=== PATIENT | female | born 1945 | race Native Hawaiian/Other Pacific Islander ===

== ENCOUNTER 2017-04-21 10:02 | Emergency (ER) | payer MEDICARE ==
[2017-04-21 10:19] VITALS: RESP 16; TEMP 97.9
--- NOTE | 2017-04-21 10:37 | C.PDOC ---
History Of Present Illness 71 yr old female with PMHx of HTN (did not take medication this morning), presents to the ER with complaints of persistent right shoulder pain for the past 4 days. Patient reports onset after lifting a heavy bag. Reports pain to the side of the right shoulder. Patient states the pain is worse when she lifts the arm and improves with Aleve and topical bio-freeze. Patient reports the pain is better today then before. Denies history of chronic shoulder injury, direct trauma, chest pain, back pain, neck pain, weakness or numbness. Time Seen by Provider: 04/21/17 10:27 Chief Complaint (Nursing): Upper Extremity Problem/Injury History Per: Patient History/Exam Limitations: no limitations Onset/Duration Of Symptoms: Days (4) Current Symptoms Are (Timing): Still Present Past Medical History Reviewed: Historical Data, Nursing Documentation, Vital Signs Vital Signs: Last Vital Signs Temp 97.9 F 04/21/17 10:08 Pulse 110 H 04/21/17 10:08 Resp 16 04/21/17 10:08 BP 180/91 H 04/21/17 10:08 Pulse Ox 99 04/21/17 10:38 - Medical History PMH: HTN, Hypercholesterolemia Family History: States: No Known Family Hx - Social History Hx Alcohol Use: No Hx Substance Use: No Review Of Systems Except As Marked, All Systems Reviewed And Found Negative. Cardiovascular: Negative for: Chest Pain Musculoskeletal: Positive for: Shoulder Pain (Right shoulder ). Negative for: Neck Pain, Back Pain Neurological: Negative for: Weakness, Numbness Physical Exam - Physical Exam Appears: Non-toxic, No Acute Distress Skin: Warm, Dry, No Rash Head: Atraumatic, Normacephalic Chest: Symmetrical, No Tenderness Cardiovascular: Rhythm Regular, No Murmur Respiratory: Normal Breath Sounds, No Rales, No Rhonchi, No Stridor, No Wheezing Extremity: Tenderness (Right deltoid.), Capillary Refill (<2), Swelling (Right deltoid ), Other (Right Shoulder - Less then 90degree flexion. Less then 90degree abduction. Limited full external rotation. ) Pulses: Left Radial: Normal, Right Radial: Normal Neurological/Psych: Oriented x3, Normal Speech, Normal Sensation Gait: Steady ED Course And Treatment O2 Sat by Pulse Oximetry: 99 (RA ) Pulse Ox Interpretation: Normal Medical Decision Making Medical Decision Making: PLAN: * Tylenol PO * Lidoderm TD Disposition Counseled Patient/Family Regarding: Diagnosis, Need For Followup, Rx Given - Disposition Referrals: YOUR,PMD [Other] Disposition: HOME/ ROUTINE Disposition Time: 10:36 Condition: IMPROVED Additional Instructions: REMOVE PATCH 12 HOURS AFTER INITIAL APPLICATION. CONTINUE ALEVE DIRECTED. MAY COMBINE WITH TYLENOL DIRECTED. Prescriptions: Lidocaine 5% [Lidoderm] 1 ea TD PRN PRN #10 patch PRN Reason: Pain, Moderate (4-7) Instructions: Shoulder Sprain (ED) Forms: [facility] (Hungarian) - Clinical Impression Clinical Impression: Shoulder strain - Scribe Statement The provider has reviewed the documentation as recorded by the Almaibe Char Anderson Provider Attestation: All medical record entries made by the Scribe were at my direction and personally dictated by me. I have reviewed the chart and agree that the record accurately reflects my personal performance of the history, physical exam, medical decision making, and the department course for this patient. I have also personally directed, reviewed, and agree with the discharge instructions and disposition.
[2017-04-21] MEDS ORDERED: Lidocaine 5% Patch TD STA (10:38)
[2017-04-21] MEDS ORDERED: Lidocaine 5% Patch TD ONE (10:44)
[2017-04-21 10:53] VITALS: BP 165/79; PULSE 78; O2SAT 98
== END 2017-04-21 10:47 | disposition home or self-care (01) ==
LOC: C.ER 10:02
DX: S46.911A Strain of unspecified muscle, fascia and tendon at shoulder and upper arm level, right arm, initial encounter (principal); X50.0XXA Overexertion from strenuous movement or load, initial encounter; I10 Essential (primary) hypertension

== ENCOUNTER 2017-05-26 17:13 | Emergency (ER) | payer MEDICARE ==
--- NOTE | 2017-05-26 17:43 | C.PDOC ---
History Of Present Illness <Arias Christiansen Jr. - Last Filed: 05/26/17 18:34> <Magdalena Pedersen - Last Filed: 05/26/17 22:13> 05/26/2017 17:40 A 72 year old female, whose past medical history includes hypertension, was brought in by EMS and presents to the emergency department complaining of head injury prior to arrival. Patient reports she slipped on stairs and hit her head on corner of door. This caused laceration to the top of her head. Patient denies of any loss of consciousness, syncope, dizziness, vision changes, focal deficits, or any other complaints. PMD: Dr. Jessie Chiang (Arias Christiansen Jr.) In addition to above history, pt denies LOC, syncope, severe headache, visual changes, focal deficits, CP, SOB, palpitation, diaphoresis, abd. pain, N/V, denies back pain,denies deformity, weakness, sensory or vascular deficits to B/ L UEs and LEs. At the time of evaluation, family at bedside and confirm mechanical nature of fall. Pt appears comfortable, not in any apparent distress. (Magdalena Pedersen) - HPI History Per: Patient History/Exam Limitations: no limitations Onset/Duration Of Symptoms: Other (prior to arrival) <Arias Christiansen Jr. - Last Filed: 05/26/17 18:34> <Magdalena Pedersen - Last Filed: 05/26/17 22:13> - HPI Time Seen by Provider: 05/26/17 17:16 Chief Complaint (Nursing): Trauma Past Medical History Reviewed: Historical Data, Nursing Documentation, Vital Signs - Medical History PMH: HTN, Hypercholesterolemia - Social History Hx Alcohol Use: No Hx Substance Use: No <Arias Christiansen Jr. - Last Filed: 05/26/17 18:34> Family History: States: No Known Family Hx - Immunization History Hx Tetanus Toxoid Vaccination: No <Magdalena Pedersen - Last Filed: 05/26/17 22:13> Vital Signs: Last Vital Signs Temp 97.6 F 05/26/17 19:37 Pulse 77 05/26/17 19:37 Resp 16 05/26/17 19:37 BP 144/71 05/26/17 19:37 Pulse Ox 97 05/26/17 19:37 Review Of Systems Except As Marked, All Systems Reviewed And Found Negative. Eyes: Negative for: Vision Change Cardiovascular: Negative for: Light Headedness (no syncope) Neurological: Negative for: Dizziness, Other (no focal deficits) <Arias Christiansen Jr. - Last Filed: 05/26/17 18:34> Physical Exam - Physical Exam Appears: Well, No Acute Distress Skin: Normal Color, Warm, Dry Head: Normacephalic, Laceration (3 cm irregular laceration top of head, mild bloody discharge) Eye(s): bilateral: Normal Inspection, PERRL, EOMI Nose: Normal Throat: Normal Neck: Paracervical Tenderness (diffused) Cardiovascular: Rhythm Regular Respiratory: Normal Breath Sounds Gastrointestinal/Abdominal: Normal Exam Back: Normal Inspection Extremity: Normal ROM <Arias Christiansen Jr. - Last Filed: 05/26/17 18:34> - Physical Exam Throat: No Drooling Neck: Normal ROM, Trachea Midline, No Midline Cervical Tenderness, No Step Off Deformity, Supple Chest: Symmetrical, No Deformity, No Tenderness, No Ecchymosis, No Subcutaneous Emphysema Respiratory: No Decreased Breath Sounds, No Accessory Muscle Use, No Stridor, No Wheezing Gastrointestinal/Abdominal: Soft, No Tenderness Back: No CVA Tenderness, No Vertebral Tenderness Extremity: No Tenderness, No Deformity, No Swelling Neurological/Psych: Oriented x3, Normal Speech, Normal Motor, Normal Sensation, Normal Reflexes <Magdalena Pedersen - Last Filed: 05/26/17 22:13> ED Course And Treatment O2 Sat by Pulse Oximetry: 96 (room air) Pulse Ox Interpretation: Normal <Arias Christiansen Jr. - Last Filed: 05/26/17 18:34> - CT Scan/US CT cervical spine w/o contrast Other Rad Studies (CT/US): Radiology Report Reviewed CT/US Interpretation: IMPRESSION: Extensive degenerative change with bridging osteophytes and syndesmophytes at all. levels, no acute fracture seen. Thank you for allowing us to participate in the care of your patient. Dictated and Authenticated by: Mary Kay Abdul MD CT head w/o contrast Other Rad Studies (CT/US): Radiology Report Reviewed CT/US Interpretation: IMPRESSION: Atrophy and small vessel disease, no bleed; age indeterminate left basal vein or. infarct; high right parietal scalp laceration. Thank you for allowing us to participate in the care of your patient. Dictated and Authenticated by: Mary Kay Abdul MD Progress Note: On re-eval, pt resting comfortably, not in any apparent distress. Afebrile, hemodynamicaly stable. non-toxic. AMbulatory in ED with stable gait. Head: exam c/w Right parietal contusion with laceration, repaired w/sutures #4. No palpable deformity. neck: no midline tenderness. Supple. Lungs: CTA B/L, BS equal B/L. ABd: benign. B/L UEs and LEs: FAROM, no neurovascular deficits. Neuorlogicaly intact. Imagings review and appears without acute abnormalities. Pt has clinical findings c/w head injury, cervical strain s/p mechanical fall. Pt and family advised OBS 48 hrs for any sign of head injury-return to ED immediately for re-evaluation. Avised onw ound ca. ref. to f/u with PMD In 2 days for re-eval. return to ED immediately if any new changes. <Magdalena Pedersen - Last Filed: 05/26/17 22:13> Laceration - Laceration Repair Scalp Wound Length (In cm): 3 Description Of Wound: Irregular Wound Cleansed With: Betadine, Sterile Saline Anesthesia: Lidocaine 2% Wound Examination: Irrigated With Saline, No FB With Wound Exploration Wound Closure: Suture (#4) Suture Technique And Material Used: Interrupted, Nylon (4-0) Wound Complexity: Simple <Magdalena Pedersen - Last Filed: 05/26/17 22:13> Medical Decision Making <Arias Christiansen Jr. - Last Filed: 05/26/17 18:34> <Magdalena Pdeersen - Last Filed: 05/26/17 22:13> Medical Decision Makin05/26/2017 17:45 Impression: 72 year old female with laceration of head. Physical exam shows 3 cm irregular laceration to top of head, mild bloody discharge; diffused paraspinal tenderness. Plan: -- Cervical Spine CT -- Head CT -- Tylenol -- Adacel -- Reassess and disposition (Arias Christiansen Jr.) Disposition <Arias Christiansen Jr. - Last Filed: 05/26/17 18:34> Counseled Patient/Family Regarding: Studies Performed, Diagnosis, Need For Followup - Disposition Disposition Time: 19:09 <Magdalena Pedersen - Last Filed: 05/26/17 22:13> - Disposition Referrals: Jessie Chiang MD [Staff Provider] - Disposition: HOME/ ROUTINE Condition: STABLE Additional Instructions: 8 HOURS FOR ANY SIGN OF HEAD INJURY-INTRACTABLE HEADACHE, VOMITING, DIZZINESS, VISUAL CHANGES OR ANY OTHER NEW CHANGES-RETURN TO ED IMMEDIATELY FOR RE- EVALUATION. TYLENOL NEED FOR PAIN KEEP WOUND CLEAN, DRY, AVOID WATER EXPOSURE FOR 1-2 DAYS SUTURE REMOVAL IN 7-10 DAYS FOLLOW UP WITH PMD IN 2 DAYS FOR RE-EVALUATION. Instructions: Laceration (ED), Head Injury (ED), Cervical Sprain (ED) Forms: [facility] ([place] Sor[place]) - Clinical Impression Clinical Impression: Head injury, Scalp laceration, Cervical strain, Fall Critical Care Time - Scribe Statement The provider has reviewed the documentation as recorded by the Scribe <Arias Christiansen Jr. - Last Filed: 05/26/17 18:34> <Magdalena Pedersen - Last Filed: 05/26/17 22:13> - Scribe Statement 05/26/2017 Scribe Attestation: Henrry Arredondo MD Scribe Attestation: All medical record entries made by the Scribe were at my direction and personally dictated by me. I have reviewed the chart and agree that the record accurately reflects my personal performance of the history, physical exam, medical decision making, and the department course for this patient. I have also personally directed, reviewed, and agree with the discharge instructions and disposition. (Arias Christiansen Jr.)
[2017-05-26] MEDS ORDERED: Lidocaine 2% Inj (20ml) INFIL ONE (17:58)
[2017-05-26] MEDS ORDERED: Lidocaine 2% Inj (20ml) ONE (18:00)
[2017-05-26] MEDS ORDERED: Magnesium Sulfate 1 gm in D5W 0 GM/0 ML BAG IVPB ONE (18:27)
--- NOTE | 2017-05-26 18:36 | CT ---
EXAM: CT Head Without Intravenous Contrast EXAM DATE/TIME: 05/26/2017 5:26 PM CLINICAL HISTORY: 72 years old, female; Injury or trauma; Fall; Initial encounter; Abrasion; Scalp TECHNIQUE: Axial computed tomography images of the head/brain without intravenous contrast. All CT scans at this facility use one or more dose reduction techniques, viz.: automated exposure control; ma/kV adjustment per patient size (including targeted exams where dose is matched to indication; i.e. head); or iterative reconstruction technique. COMPARISON: There are no prior studies for comparison. FINDINGS: Brain: There is prominence of sulci gyri and ventricles. There is no midline shift. There is decreased attenuation in periventricular white matter. There is an age-indeterminate lacunar infarct in the left basal ganglia. There are basal ganglia calcifications bilaterally. There are no focal masses. There are no focal hemorrhages. Aiken-white differentiation is visualized. Ventricles: See above Bones: Cranial vault is intact. Soft tissues: There is a prior right parietal scalp laceration. Sinuses: There is no acute sinusitis. Ears and mastoids: Middle ears and mastoids are unremarkable. Orbits: Orbital contents are unremarkable. IMPRESSION: Atrophy and small vessel disease, no bleed; age indeterminate left basal vein or infarct; high right parietal scalp laceration
--- NOTE | 2017-05-26 18:42 | CT ---
EXAM: CT Cervical Spine Without Intravenous Contrast EXAM DATE/TIME: 05/26/2017 5:41 PM CLINICAL HISTORY: 72 years old, female; Injury or trauma; Fall; Initial encounter; Concussion /head injury TECHNIQUE: Axial computed tomography images of the cervical spine without intravenous contrast. All CT scans at this facility use one or more dose reduction techniques, viz.: automated exposure control; ma/kV adjustment per patient size (including targeted exams where dose is matched to indication; i.e. head); or iterative reconstruction technique. Coronal and sagittal reformatted images were created and reviewed. COMPARISON: There are no prior studies for comparison. FINDINGS: Vertebrae: There is maintenance of the cervical lordosis. There is distortion of prevertebral soft tissues by large osteophytes. There are no acute fractures. There are degenerative changes at all levels. There is narrowing of the predental space. There are bridging osteophytes and syndesmophytes at all cervical levels, T1, T2 and T3. There is narrowing of all facet joints. There is ankylosis of multiple facet joints. There is disc space narrowing at multiple levels. There is obliteration of the T2/T3 disc space. Discs/spinal canal/neural foramina: See above. Soft tissues: unremarkable Thyroid: Thyroid is nodular and heterogeneous. There is a calcified nodule on the right. Lung apices: Lung apices are clear. IMPRESSION: Extensive degenerative change with bridging osteophytes and syndesmophytes at all levels, no acute fracture seen
[2017-05-26 19:40] VITALS: BP 144/71; PULSE 77; RESP 16; TEMP 97.6; O2SAT 97
== END 2017-05-26 19:37 | disposition home or self-care (01) ==
LOC: C.ER 17:13
DX: S01.01XA Laceration without foreign body of scalp, initial encounter (principal); S16.1XXA Strain of muscle, fascia and tendon at neck level, initial encounter; W10.9XXA Fall (on) (from) unspecified stairs and steps, initial encounter

== ENCOUNTER 2017-06-05 09:06 | Emergency (ER) | payer MEDICARE ==
[2017-06-05 09:35] VITALS: BP 178/71; PULSE 85; RESP 19; TEMP 98; O2SAT 94
--- NOTE | 2017-06-05 10:08 | C.PDOC ---
History Of Present Illness 72 year old female with past medical history significant for hypertension presented for suture removal s/p fall to the head on May 26. Patient states that on that day she slipped and fell while going down the stairs. At the time of the then incident, she reported blood at the site of the injury which eventually required stitches. Following the incident, she admitted to occasional pain at the site of the injury. She denies any loss of consciousness , paresthesias, gait dysfunction, focal , motor or sensory neurological defects or vision changes. Time Seen by Provider: 06/05/17 09:43 Chief Complaint (Nursing): Medical Clearance History Per: Patient History/Exam Limitations: no limitations Onset/Duration Of Symptoms: Days Ago Current Symptoms Are (Timing): Gone Location Of Injury: Right: Head Severity: None Additional History Per: Patient Past Medical History Vital Signs: Last Vital Signs Temp 98.0 F 06/05/17 09:29 Pulse 85 06/05/17 09:29 Resp 19 06/05/17 09:29 BP 178/71 H 06/05/17 09:29 Pulse Ox 94 L 06/05/17 16:49 - Medical History PMH: HTN, Hypercholesterolemia Family History: States: Unknown Family Hx - Social History Hx Tobacco Use: No Hx Alcohol Use: No Hx Substance Use: No - Immunization History Hx Tetanus Toxoid Vaccination: Yes Hx Influenza Vaccination: Yes Hx Pneumococcal Vaccination: (unk) Review Of Systems Constitutional: Negative for: Fever, Weakness Eyes: Negative for: Pain ENT: Negative for: Ear Pain, Ear Discharge Cardiovascular: Negative for: Chest Pain Respiratory: Negative for: Cough, Wheezing Gastrointestinal: Negative for: Nausea, Vomiting, Abdominal Pain Musculoskeletal: Negative for: Neck Pain, Back Pain Skin: Negative for: Rash Neurological: Negative for: Weakness, Numbness, Incoordination, Altered Mental Status, Dizziness Psych: Negative for: Anxiety, Depression Physical Exam - Physical Exam Appears: Well (No blood noted at the site), No Acute Distress Skin: Normal Color, Warm Head: No Tenderness, No Swelling, Abrasion (stitches noted), Other (healed scabs noted overlying the right side of scalp) Eye(s): bilateral: Normal Inspection, PERRL, EOMI Nose: Normal Neck: Normal, Normal ROM Cardiovascular: Rhythm Regular, No Murmur Respiratory: Normal Breath Sounds Extremity: Normal ROM Pulses: Left Radial: Normal, Right Radial: Normal, Left Dorsalis Pedis: Normal, Right Dorsalis Pedis: Normal Neurological/Psych: Oriented x3, Normal Speech, Normal Cognition, Normal Cranial Nerves, Normal Motor, Normal Sensation Disoriented To: Person, Place, Time Gait: Steady Extremity: Right: No Drift, Left: No Drift ED Course And Treatment O2 Sat by Pulse Oximetry: 94 Disposition - Disposition Referrals: Jessie Chiang MD [Staff Provider] - Disposition: HOME/ ROUTINE Disposition Time: 10:17 Condition: IMPROVED Additional Instructions: Patient is encouraged to follow up with her PMD Dr. Chiang within 7 days. Patient is encouraged to take precautions when ambulating in the future. Patient may take showers. She is encouraged to let the scabs fall off on their own. Additional print out care provided as well. If symptoms return, go to the emergency room. Instructions explained to the patient who is aware. Instructions: Care For Your Stitches (DC) Forms: [facility] ([place] Islander) Print Language: SYRIAC - Clinical Impression Clinical Impression: Visit for suture removal
== END 2017-06-05 10:31 | disposition home or self-care (01) ==
LOC: C.ER 09:06
DX: Z48.02 Encounter for removal of sutures (principal)

== ENCOUNTER 2018-09-27 09:14 | Outpatient (CLI) | payer MEDICARE | END 2018-09-27 09:15 | disposition home or self-care (01) | LOC: C.MAMMO 09:14 | DX: Z12.31 Encounter for screening mammogram for malignant neoplasm of breast (principal) ==

== ENCOUNTER 2018-12-18 09:14 | Outpatient (CLI) | payer MEDICARE | END 2018-12-18 09:15 | disposition home or self-care (01) | LOC: C.LAB 09:14 ==